=== PATIENT | male | born 1950 | race Caucasian/White ===

== ENCOUNTER 2021-07-16 10:41 | Emergency (ER) | payer MEDICARE, BC ==
[~2021-07-16] VITALS: Ht 190.5 cm; Wt 113.6 kg
[2021-07-16 11:36] VITALS: BP 119/74
[2021-07-16 11:53] LABS: BASO # 0.1 x10^3/uL (0.0-0.2); BASO % 1 % (0-3); EOS % 0 % (0-3); HEMATOCRIT 26.1 % (39.0-53.0); HEMOGLOBIN 8.8 g/dL (13.0-17.5); LYMPH # 1.2 x10^3/uL (1.0-4.8); LYMPH % 9 % (24-48); MEAN CORPUSCULAR HEMOGLOBIN 37 pg (25-35); MEAN CORPUSCULAR HGB CONC 34 g/dL (31-37); MEAN CORPUSCULAR VOLUME 110 fL (79-100); MONO # 0.8 x10^3/uL (0.0-1.1); MONO % 6 % (0-9); NEUT # 11.9 x10^3uL (1.8-7.7); NEUT % 85 % (31-73); PLATELET COUNT 225 x10^3/uL (140-400); RED BLOOD COUNT 2.37 x10^6/uL (4.30-5.70); RED CELL DISTRIBUTION WIDTH 13.8 % (11.5-14.5)
[2021-07-16 11:57] LABS: CALCIUM 8.3 mg/dL (8.5-10.1); CREATININE 1.1 mg/dL (0.7-1.3)
[2021-07-16 12:03] LABS: ALBUMIN 2.4 g/dL (3.4-5.0); ALBUMIN/GLOBULIN RATIO 0.4 (1.0-1.7); TOTAL BILIRUBIN 0.7 mg/dL (0.2-1.0); TOTAL PROTEIN 7.9 g/dL (6.4-8.2)
--- NOTE | 2021-07-16 12:13 | RAD ---
XR KNEE _3 VIEWS_LT DATE: 07/16/2021 11:28 AM INDICATION: swelling, pain COMPARISON: None. FINDINGS/ IMPRESSION: 1. 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 2. Large joint effusion. 3. Heterogeneous mineralization of the tibia with trabecular and cortical thickening, nonspecific but may be secondary to systemic/metabolic disease or process such as Paget's disease. Electronically signed by: Andrea Hernández MD (07/16/2021 12:10 PM) [facility]
[2021-07-16 12:14] LABS: PLT ESTIMATE ADEQUATE (ADEQUATE)
--- NOTE | 2021-07-16 12:22 | PHYS DOC ---
Past History Additional Past Medical Histor: BAKERS CYST Past Surgical History: No Surgical History Alcohol Use: None General Adult EDM: Chief Complaint: LOWER EXTREMITY SWELLING HPI: HPI: 71-year-old male presents with left knee swelling. The patient has a Link's cyst that has been worked up in the past. Comes in today because of the last 2 days he has had much more swelling in that knee. It is more uncomfortable. The patient does not really walk. He transitions from wheelchair to chair. He denies shortness of breath or chest pain. No recent trauma. Denies fever or chills. Review of Systems: Review of Systems: Constitutional: Denies fever or chills Eyes: Denies change in visual acuity HENT: Denies nasal congestion or sore throat Respiratory: Denies cough or shortness of breath Cardiovascular: Denies chest pain or edema GI: Denies abdominal pain, nausea, vomiting, bloody stools or diarrhea : Denies dysuria Musculoskeletal: Swollen left knee Integument: Denies rash Neurologic: Denies headache, focal weakness or sensory changes Endocrine: Denies polyuria or polydipsia Lymphatic: Denies swollen glands Psychiatric: Denies depression or anxiety Allergies: Allergies: Allergies Coded Allergies Type Severity Reaction Last Updated Verified clonidine Allergy Unknown 07/16/21 Yes warfarin Allergy Unknown 07/16/21 Yes Physical Exam: PE: Constitutional: Well developed, well nourished, no acute distress, non-toxic appearance. [] HENT: Normocephalic, atraumatic, bilateral external ears normal, oropharynx moist, no oral exudates, nose normal. [] Eyes: PERRLA, EOMI, conjunctiva normal, no discharge. [] Neck: Normal range of motion, no tenderness, supple, no stridor. [] Cardiovascular: Heart rate regular rhythm, no murmur [] Lungs & Thorax: Bilateral breath sounds clear to auscultation [] Abdomen: Bowel sounds normal, soft, no tenderness, no masses, no pulsatile masses. [] Skin: Warm, dry, no erythema, no rash. [] Back: No tenderness, no CVA tenderness. [] Extremities: Left knee significantly larger than right limited range of motion due to swelling. Not erythematous or warm. [] Neurologic: Alert and oriented X 3, normal motor function, normal sensory function, no focal deficits noted. [] Psychologic: Affect normal, judgement normal, mood normal. [] Current Patient Data: Labs: Laboratory Tests Test 07/16/21 11:30 White Blood Count 14.0 x10^3/uL (4.0-11.0) H Red Blood Count 2.37 x10^6/uL (4.30-5.70) L Hemoglobin 8.8 g/dL (13.0-17.5) L Hematocrit 26.1 % (39.0-53.0) L Mean Corpuscular Volume 110 fL (79-100) H Mean Corpuscular Hemoglobin 37 pg (25-35) H Mean Corpuscular Hemoglobin Concent 34 g/dL (31-37) Red Cell Distribution Width 13.8 % (11.5-14.5) Platelet Count 225 x10^3/uL (140-400) Neutrophils (%) (Auto) 85 % (31-73) H Lymphocytes (%) (Auto) 9 % (24-48) L Monocytes (%) (Auto) 6 % (0-9) Eosinophils (%) (Auto) 0 % (0-3) Basophils (%) (Auto) 1 % (0-3) Neutrophils # (Auto) 11.9 x10^3uL (1.8-7.7) H Lymphocytes # (Auto) 1.2 x10^3/uL (1.0-4.8) Monocytes # (Auto) 0.8 x10^3/uL (0.0-1.1) Eosinophils # (Auto) 0.0 x10^3/uL (0.0-0.7) Basophils # (Auto) 0.1 x10^3/uL (0.0-0.2) Platelet Estimate Adequate (ADEQUATE) Anisocytosis Macrocytosis Slight Sodium Level 135 mmol/L (136-145) L Potassium Level 3.0 mmol/L (3.5-5.1) L Chloride Level 98 mmol/L (98-107) Carbon Dioxide Level 25 mmol/L (21-32) Anion Gap 12 (6-14) Blood Urea Nitrogen 25 mg/dL (8-26) Creatinine 1.1 mg/dL (0.7-1.3) Estimated GFR (Cockcroft-Gault) 66.0 BUN/Creatinine Ratio 23 (6-20) H Glucose Level 142 mg/dL (70-99) H Calcium Level 8.3 mg/dL (8.5-10.1) L Total Bilirubin 0.7 mg/dL (0.2-1.0) Aspartate Amino Transferase (AST) 19 U/L (15-37) Alanine Aminotransferase (ALT) 11 U/L (16-63) L Alkaline Phosphatase 65 U/L (46-116) Total Protein 7.9 g/dL (6.4-8.2) Albumin 2.4 g/dL (3.4-5.0) L Albumin/Globulin Ratio 0.4 (1.0-1.7) L Vital Signs: Vital Signs Date Time Temp Pulse Resp B/P (MAP) Pulse Ox O2 Delivery O2 Flow Rate FiO2 07/16/21 11:36 98.4 91 20 119/74 98 Room Air EKG: EKG: [] Radiology/Procedures: Radiology/Procedures: [] Impressions: XR KNEE _3 VIEWS_LT DATE: 07/16/2021 11:28 AM INDICATION: swelling, pain COMPARISON: None. FINDINGS/ IMPRESSION: 1. 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 2. Large joint effusion. 3. Heterogeneous mineralization of the tibia with trabecular and cortical thickening, nonspecific but may be secondary to systemic/metabolic disease or process such as Paget's disease. Electronically signed by: Scott Hernández MD (07/16/2021 12:10 PM) [facility] DICTATED AND SIGNED BY: SCOTT HERNÁNDEZ MD DATE: 07/16/21 1157 CC: LISA GUZMAN DO; KENDRA SAMANIEGO MD ~MTH0 0 Heart Score: C/O Chest Pain: N/A Risk Factors: Risk Factors: DM, Current or recent (<one month) smoker, HTN, HLP, family history of CAD, obesity. Risk Scores: Score 0 - 3: 2.5% MACE over next 6 weeks - Discharge Home Score 4 - 6: 20.3% MACE over next 6 weeks - Admit for Clinical Observation Score 7 - 10: 72.7% MACE over next 6 weeks - Early Invasive Strategies Course & Med Decision Making: Course & Med Decision Making Pertinent Labs and Imaging studies reviewed. (See chart for details) The patient has a slight white count of 14. His knee has a large effusion. We attempted to drain the effusion but got minimal fluid. I do not have the needles that I would prefer for such a procedure. I am going to go and put the patient on antibiotics at an abundance of caution. I have informed him that if his knee swells worse, becomes red and hot, or he develops a systemic fever that he would need to come back to the hospital and be admitted to a facility with orthopedics for IV antibiotics. He states verbal understanding. His family member who accompanies him states verbal understanding. He is stable for discharge at this time. [] Dragon Disclaimer: Dragon Disclaimer: This electronic medical record was generated, in whole or in part, using a voice recognition dictation system. Departure Departure: Impression: Primary Impression: Knee effusion, left Disposition: 01 HOME / SELF CARE / HOMELESS Condition: STABLE Referrals: KENDRA SAMANIEGO MD (PCP) Patient Instructions: Knee Effusion, [id number] Scripts Sulfamethoxazole/Trimethoprim (BACTRIM DS TABLET) 1 Each Tablet 1 TAB PO BID for knee effusion for 7 Days, #14 TAB 0 Refills Prov: LISA GUZMAN DO 07/16/21 Cephalexin (CEPHALEXIN) 500 Mg Tablet 1 TAB PO TID for knee effusion for 7 Days, #21 TAB Prov: LISA GUZMAN DO 07/16/21 LISA GUZMAN DO Jul 16, 2021 12:22
[2021-07-16] MEDS ORDERED: CEPH500T PO (13:03)
[2021-07-16] MEDS ORDERED: SULF1TAB24 PO (13:03)
== END 2021-07-16 13:44 | disposition home or self-care (01) ==
LOC: ER 10:41
DX: M25.462 Effusion, left knee (principal)
CPT/HCPCS: 36415; 73562; 80053; 85025; 99284-25

== ENCOUNTER → 2021-07-19 | Outpatient (CLI) | payer MEDICARE, BC ==
[2021-07-16 11:36] VITALS: BP 119/74
[~2021-07-19] MED LIST: CEPH500T PO; SULF1TAB24 PO
--- NOTE | 2021-07-19 16:07 | RAD ---
LEFT LEG VENOUS DOPPLER STUDY: Clinical indications: Left leg swelling and pain. Findings: Duplex sonography (including flores scale evaluation and color flow and waveform spectral michael lysis) of the proximal aspect of the greater saphenous vein and the proximal aspect of the profunda f emoral vein and the entire length of the common femoral and superficial femoral and popliteal veins a nd the tibioperoneal trunk and the proximal aspect of the posterior tibial and peroneal veins of the left leg was performed. Normal compressibility, augmentation of color Doppler flow after calf leola roseanne, and respiratory variation of Doppler flow is seen. Thus, there are no sonographic findings of d eep venous thrombosis within these veins. Impression: There are no sonographic findings of deep venous thrombosis within the veins discussed ab ove of the left lower extremity. There is a large fluid collection within the anterior distal thigh measuring 15.8 cm x 6.5 cm x 2.5 c m in size. Electronically signed by: Elliot Perez MD (07/19/2021 4:05 PM) [id number]
== END ==
LOC: US 15:29
PROVIDERS: ATTEND Family Medicine
DX: R22.42 Localized swelling, mass and lump, left lower limb (principal)
CPT/HCPCS: 93971